=== PATIENT | male | born 1950 | race Caucasian/White ===

== ENCOUNTER 2016-08-06 17:14 | Emergency (ER) | payer MEDICARE, MEDICAID ==
[~2016-08-06] VITALS: Ht 177.8 cm; Wt 93.0 kg
--- OUTSIDE RECORDS SUMMARY | 2016-08-06 17:22 | XMS REPORT ---
Author Author [facility] Organization [facility] Address [address] [place], [place] [id number] Phone [phone] Care Team Providers Care Quality Internship Name Role Phone MARY GIORDANO, PRAKASH PP [phone] Summary purpose CCDA Sent to [facility] Chief Complaint and Reason for Visit No authorized Reason for Visit (Admitting Diagnosis) is available for this visit. Problem list No authorized problems tracked for continuity of care are available for this visit. Encounters No authorized problems tracked for encounter diagnoses are available for this visit. Medications Home Medications Medication Directions Started Status Source Zofran ODT 4 mg disintegrating tablet 1 tablet oral As Needed Every 6 Hours for NAUSIA Current Medication bottle label traMADol 50 mg tablet 1 tablet oral 2 times per day for LEG PAIN Current Family recall from memory levETIRAcetam 500 mg tablet 2 tablet oral Every morning Current Family recall from memory levETIRAcetam 500 mg tablet 3 tablet oral As Needed At Bedtime Current Patient medication list bisoprolol 5 mg-hydrochlorothiazide 6.25 mg tablet 1 tablet oral -Daily Current Family recall from memory omeprazole 40 mg capsule,delayed release 1 tablet oral Every morning Current Family recall from memory Allergies, adverse reactions, alerts Allergen Category Ingredient Status Reaction Severity Onset No Allergy Information Available Drug No Allergy Information Available Inactive Immunizations No immunizations recorded for this patient visit Relevant diagnostic tests and/or laboratory data RESULTS CBC [id number] Result Normal Range Units White Blood Count H 12.74 4.80-10.80 x 103/uL Red Blood Cells 4.78 4.70-6.10 x 106/uL Hemoglobin 15.0 14.0-18.0 g/dl Hematocrit L 41.9 42.0-52.0 % Mean Bry Volume 87.7 80.0-100.0 fL Mean Bry Hemoglobin H 31.4 27.0-31.0 pg Mean Bry Hemoglobin Conc 35.8 32.0-36.0 g/dl Platelet Count 285 130-450 x 103/uL Mean Platelet Volume 9.4 FL Neutrophil % 79.9 38.0-80.0 % Lymphocyte% L 9.6 21-51 % Monocyte % 9.9 2-14 % Eosinophil % 0.3 0.0-20.0 % Basophil % 0.3 0.0-2.5 % Chemistry Group [id number] Result Normal Range Units Glucose H 157 75-110 mg/dl Creatinine 1.1 0.8-1.5 mg/dl Urea Nitrogen (BUN) 12 9-20 mg/dl Bun/Creatinine Ratio 10.8 Ratio Sodium 137 137-145 mmol/L Potassium L 3.1 3.6-5.0 mmol/L Chloride L 93 98-107 mmol/L CO2 H 31 22-30 mmol/L Anion GAP 14 mmol Protein Total H 8.4 6.3-8.2 g/dl Albumin 4.1 3.5-5.0 g/dl Globulin 4.3 mg/dl A/G Ratio 1.0 Ratio Bilirubin Total .7 0.2-1.3 mg/dl Alkaline Phosphatase H 160 38-126 U/L AST H 75 17-59 U/L ALT H 224 21-72 U/L Calcium 9.1 8.4-10.2 mg/dl Osmolality Calculation 268 mOsm/kg History of procedures No procedures recorded for this patient visit. Functional status No functional or cognitive status observations are available for this visit. Vital signs No authorized vital signs are available for this visit. Social history No Social History or smoking status observations were recorded for this visit. ( Unknown if ever smoked.) Treatment Plan No treatment plan text is available for this visit. Hospital discharge instructions No discharge instruction text is available for this visit.
[2016-08-06 17:29] LABS: BASOPHILS # (AUTO) 0.1 10^3/uL (0.0-0.1); BASOPHILS % (AUTO) 1 % (0-10); EOSINOPHILS # (AUTO) 0.2 10^3/uL (0.0-0.3); EOSINOPHILS % (AUTO) 3 % (0-10); LYMPHOCYTES # (AUTO) 2.7 X 10^3 (1.0-4.0); LYMPHOCYTES % (AUTO) 32 % (12-44); MEAN CORPUSCULAR HEMOGLOBIN 30 PG (25-34); MEAN CORPUSCULAR HGB CONC 34 G/DL (32-36); MEAN CORPUSCULAR VOLUME 90 FL (80-99); MONOCYTES # (AUTO) 0.9 X 10^3 (0.0-1.0); MONOCYTES % (AUTO) 11 % (0-12); NEUTROPHILS # (AUTO) 4.5 X 10^3 (1.8-7.8); NEUTROPHILS % (AUTO) 54 % (42-75); PLATELET COUNT 340 10^3/uL (130-400); RED BLOOD COUNT 5.11 10^6/uL (4.35-5.85); RED CELL DISTRIBUTION WIDTH 13.5 % (10.0-14.5); WHITE BLOOD COUNT 8.4 10^3/uL (4.3-11.0)
--- NOTE | 2016-08-06 17:37 | ED Cardiac General ---
History of Present Illness General Chief Complaint: Cardiac/General Problems Stated Complaint: HTN Source: patient Exam Limitations: no limitations (ALEJANDRA WOODY MD) History of Present Illness Time seen by provider: 17:17 Initial Comments Here from [facility] with report of hypertension, sweating, not feeling well and leg pain. Patient has chronic leg pain and that is not really different than previous. EMS noted that he was hypertensive. Patient denies cough, chest pain, nausea, vomiting or diarrhea. States he is eating and drinking okay. States that pain in his legs is related to arthritis. Timing/Duration: 1 hour Severity: moderate NTG SL COUNTER TACKER: No ASA po COUNTER TACKER: No Associated Systoms: No Chest Pain, No Cough, No Fever/Chills, Nausea/ VomitingNo Shortness of Air (ALEJANDRA WOODY MD) Allergies and Home Medications Allergies Coded Allergies: No Known Drug Allergies (Unverified , 08/06/16) Review of Systems Constitutional: see HPINo chills, No fever, weakness EENTM: No Symptoms ReportedNo Nose Pain, No Throat Pain Respiratory: Denies Cough, Denies SOA With Exertion Cardiovascular: Denies Chest Pain, Denies Lightheadedness Gastrointestinal: No Symptoms ReportedDenies Nausea, Denies Vomiting Genitourinary: No Symptoms Reported Musculoskeletal: joint pain muscle pain Skin: no symptoms reported Psychiatric/Neurological: No Symptoms Reported Endocrine: No Symptoms Reported (ALEJANDRA WOODY MD) All Other Systems Reviewed Negative Unless Noted: Yes (ALEJANDRA WOODY MD) Past Uypesrh-Znwabw-Cquhbl Hx Patient Social History Alcohol Use: Denies Use Recreational Drug Use: No Smoking Status: Unknown if Ever Smoked (ALEJANDRA WOODY MD) Surgeries HX Surgeries: Yes Surgeries: Gallbladder (ALEJANDRA WOODY MD) Respiratory Hx Respiratory Disorders: No (ALEJANDRA WOODY MD) Cardiovascular Hx Cardiac Disorders: Yes Cardiac Disorders: Hypertension (ALEJANDRA WOODY MD) Neurological Hx Neurological Disorders: Yes Neurological Disorders: Seizure Disorder (ALEJANDRA WOODY MD) Genitourinary Hx Genitourinary Disorders: No (ALEJANDRA WOODY MD) Gastrointestinal Hx Gastrointestinal Disorders: Yes Gastrointestinal Disorders: Gastroesophageal Reflux (ALEJANDRA WOODY MD) Musculoskeletal Hx Musculoskeletal Disorders: Yes Musculoskeletal Disorders: Arthritis (ALEJANDRA WOODY MD) Endocrine Hx Endocrine Disorders: No (ALEJANDRA WOODY MD) HEENT HX ENT Disorders: No (ALEJANDRA WOODY MD) Cancer Hx Cancer: No (ALEJANDRA WOODY MD) Psychosocial Hx Psychiatric Problems: Yes Behavioral Health Disorders: Anxiety, Personality Disorder (ALEJANDRA WOODY MD) Reviewed Nursing Assessment Reviewed/Agree w Nursing PMH: Yes (ALEJANDRA WOODY MD) Family Medical History Significant Family History: No Pertinent Family Hx (ALEJANDRA WOODY MD) Physical Exam Vital Signs Vital Sign - Last 12Hours 08/06/16 17:15 Temp 99.2 Pulse 88 Resp 16 B/P 193/111 Pulse Ox 95 O2 Delivery Room Air (OLU WHITTINGTON APRN) Vital Signs Capillary Refill : (ALEJANDRA WOODY MD) General Appearance: No Apparent Distress WD/WN HEENT: PERRL/EOMI Pharynx Normal Neck: Non Tender Supple Respiratory: Lungs Clear Normal Breath Sounds Cardiovascular: Regular Rate, Rhythm No Murmur Gastrointestinal: Non Tender Soft Extremity: No Pedal EdemaNo Swelling, Other (tender throughout legs bilaterally) Neurologic/Psychiatric: Alert Oriented x3 No Motor/Sensory Deficits Skin: Normal Color Warm/Dry (ALEJANDRA WOODY MD) Progress/Results/Core Measures Results/Orders Lab Results Laboratory Tests Test 08/06/16 17:20 08/06/16 18:37 08/06/16 19:00 Range/Units Basophils # (Auto) 0.1 0.0-0.1 10^3/uL Basophils (%) (Auto) 1 0-10 % Eosinophils # (Auto) 0.2 0.0-0.3 10^3/uL Eosinophils (%) (Auto) 3 0-10 % Hematocrit 46 40-54 % Hemoglobin 15.5 13.3-17.7 G/DL Lymphocytes # (Auto) 2.7 1.0-4.0 X 10^3 Lymphocytes (%) (Auto) 32 12-44 % Mean Corpuscular Hemoglobin 30 25-34 PG Mean Corpuscular Hemoglobin Concent 34 32-36 G/DL Mean Corpuscular Volume 90 80-99 FL Mean Platelet Volume 9.0 7.4-10.4 FL Monocytes # (Auto) 0.9 0.0-1.0 X 10^3 Monocytes (%) (Auto) 11 0-12 % Neutrophils # (Auto) 4.5 1.8-7.8 X 10^3 Neutrophils (%) (Auto) 54 42-75 % Platelet Count 340 130-400 10^3/uL Red Blood Count 5.11 4.35-5.85 10^6/uL Red Cell Distribution Width 13.5 10.0-14.5 % White Blood Count 8.4 4.3-11.0 10^3/uL Urine Bacteria NONE /HPF Urine Bilirubin NEGATIVE NEGATIVE Urine Casts NONE /LPF Urine Clarity CLEAR Urine Color YELLOW Urine Crystals NONE /LPF Urine Culture Indicated NO Urine Glucose (UA) NEGATIVE NEGATIVE Urine Ketones NEGATIVE NEGATIVE Urine Leukocyte Esterase NEGATIVE NEGATIVE Urine Mucus NEGATIVE /LPF Urine Nitrite NEGATIVE NEGATIVE Urine Protein NEGATIVE NEGATIVE Urine RBC NONE /HPF Urine RBC (Auto) NEGATIVE NEGATIVE Urine Specific Sheldon 1.005 L 1.016-1.022 Urine Squamous Epithelial Cells 0-2 /HPF Urine Urobilinogen NORMAL NORMAL MG/DL Urine WBC NONE /HPF Urine pH 7 5-9 Alanine Aminotransferase (ALT/SGPT) 30 0-55 U/L Albumin 4.1 3.2-4.5 G/DL Alkaline Phosphatase 81 40-136 U/L Anion Gap 12 5-14 MMOL/L Aspartate Amino Transf (AST/SGOT) 21 5-34 U/L BUN/Creatinine Ratio 14 Blood Urea Nitrogen 16 7-18 MG/DL Calcium Level 9.2 8.5-10.1 MG/DL Carbon Dioxide Level 25 21-32 MMOL/L Chloride Level 100 98-107 MMOL/L Creatinine 1.15 0.60-1.30 MG/DL Estimat Glomerular Filtration Rate > 60 Glucose Level 98 70-105 MG/DL Lipase 15 8-78 U/L Magnesium Level 2.3 1.8-2.4 MG/DL Potassium Level 4.2 3.6-5.0 MMOL/L Sodium Level 137 135-145 MMOL/L Total Bilirubin 0.3 0.1-1.0 MG/DL Total Protein 7.8 6.4-8.2 G/DL Troponin I < 0.30 <0.30 NG/ML (OLU WHITTINGTON APRN) My Orders Orders-OLU WHITTINGTON APRN Cbc With Automated Diff (08/06/16 17:22) Comprehensive Metabolic Panel (08/06/16 17:22) Lipase (08/06/16 17:22) Troponin I (08/06/16 17:22) Ua Culture If Indicated (08/06/16 17:22) Chest 1 View, Ap/Pa Only (08/06/16 17:22) Ekg Tracing (08/06/16 17:22) Continuous Ekg Monitoring (08/06/16 17:22) Magnesium (08/06/16 17:22) (OLU WHITTINGTON APRN) My Orders Orders-ALEJANDRA WOODY MD Aspirin Chewable Tablet (Baby Aspirin Ch (08/06/16 17:40) (ALEJANDRA WOODY MD) Medications Given in ED Current Medications Medications Dose Ordered Sig/Ann Route Start Time Stop Time Status Last Admin Dose Admin Alprazolam 0.5 mg ONCE ONCE PO 08/06/16 18:30 08/06/16 18:31 DC 08/06/16 18:36 0.5 MG Clonidine HCl 0.1 mg ONCE ONCE PO 08/06/16 18:30 08/06/16 18:31 DC 08/06/16 18:36 0.1 MG (OLU WHITTINGTON APRN) Vital Signs/I&O Vital Sign - Last 12Hours 08/06/16 17:15 Temp 99.2 Pulse 88 Resp 16 B/P 193/111 Pulse Ox 95 O2 Delivery Room Air (OLU WHITTINGTON APRN) Vital Signs/I&O Vital Sign - Last 12Hours 08/06/16 17:15 Temp 99.2 Pulse 88 Resp 16 B/P 193/111 Pulse Ox 95 O2 Delivery Room Air (ALEJANDRA WOODY MD) Progress Note : Progress Note Seen and evaluated. IV by EMS, labs, EKG, chest x-ray ordered. Monitor patient. (ALEJANDRA WOODY MD) ECG Initial ECG Impression Date: Aug 06, 2016 Initial ECG Impression Time: 17:31 Initial ECG Rate: 85 Initial ECG Rhythm: Normal Sinus Initial ECG Intervals: Normal Comment Sinus rhythm with right bundle branch block. Normal axis. No evidence of ST elevation [place]. No previous available for comparison. Interpreted by me. (ALEJANDRA WOODY MD) Diagnostic Imaging Diagonstic Imaging: Xray Plain Films/CT/US/NM/MRI: chest Comments VIA [place], [place] NAME: WAQAR SHARMA [facility] REC#: [id number] PT STATUS: REG ER : 1950 PHYSICIAN: OLU WHITTINGTON APRN ADMIT DATE: 08/06/16/ER Draft Date of Exam:08/06/16 CHEST 1 VIEW, AP/PA ONLY INDICATION: 66-year-old male presents with high blood pressure and shortness of breath. COMPARISON: None. FINDINGS: Single view of the chest shows the cardiac contour to be upper limits of normal. There is slight prominent central vascularity accentuated by the portable technique. No definite consolidations are seen. Background chronic parenchymal changes are present. There is no effusion or pneumothorax. Soft tissues and bony thorax are normal. IMPRESSION: There is slight prominence in the central lung markings accentuated by the portable technique. An element of mild central venous congestion may be present but no consolidations. Dictated on workstation # [id number] Dict: 08/06/16 1749 Trans: 08/06/16 1800 [facility] [id number] Interpreted by: PAO LOBATO MD Electronically signed by: Reviewed: Reviewed by Me (ALEJANDRA WOODY MD) Departure Communication Progress Notes 1927-patient is standing in his doorway talking on his cell phone states that he feels well like to go home back to the correction and eat. 1947-blood pressure still high at 170s over 105. Patient however is smiling and appears to feel well in standing in the doorway saying wants to go get back in his own bed. We will do one additional dose of clonidine before he is discharged. (OLU WHITTINGTON APRN) Impression Impression: Primary Impression: Hypertension Qualified Code: I15.9 - Secondary hypertension, unspecified Disposition: SNF Condition: Stable Departure-Patient Inst. Decision time for Depature: 19:29 (OLU WHITTINGTON APRN) Referrals: UNKNOWN (PCP/Family) Primary Care Physician Patient Instructions: High Blood Pressure (DC) Add. Discharge Instructions: 1. Continue your current blood pressure medications 2. Follow-up with your regular doctor later this week or next week to recheck your blood pressure and adjust medications accordingly. All discharge instructions reviewed with patient and/or family. Voiced understanding. ALEJANDRA WOODY MD Aug 06, 2016 17:37 OLU WHITTINGTON APRN Aug 06, 2016 19:29
[2016-08-06] MEDS ORDERED: ASPIRIN 81 MG CHEW (CHILDREN'S ASA) PO STA (17:40)
--- NOTE | 2016-08-06 18:00 | Diagnostic Imaging Report ---
INDICATION: 66-year-old male presents with high blood pressure and shortness of breath. COMPARISON: None. FINDINGS: Single view of the chest shows the cardiac contour to be upper limits of normal. There is slight prominent central vascularity accentuated by the portable technique. No definite consolidations are seen. Background chronic parenchymal changes are present. There is no effusion or pneumothorax. Soft tissues and bony thorax are normal. IMPRESSION: There is slight prominence in the central lung markings accentuated by the portable technique. An element of mild central venous congestion may be present but no consolidations. Dictated by: Dictated on workstation # [id number]
[2016-08-06] MEDS ORDERED: ALPRAZolam 0.25 MG (XANAX) TAB PO ONE (18:30)
[2016-08-06] MEDS ORDERED: cloNIDine 0.1 MG (CATAPRES) TAB PO ONE ×2 (18:30→20:00)
[2016-08-06 18:46] LABS: BILIRUBIN,URINE NEGATIVE (NEGATIVE); KETONES,URINE NEGATIVE (NEGATIVE); LEUKOCYTE ESTERASE ,URINE NEGATIVE (NEGATIVE); NITRITE,URINE NEGATIVE (NEGATIVE); PH,URINE 7 (5-9); PROTEIN,URINE NEGATIVE (NEGATIVE); UROBILINOGEN,URINE NORMAL (NORMAL)
[2016-08-06 18:57] LABS: SQUAMOUS EPITHELIAL CELL,UR 0-2 /HPF
[2016-08-06 19:27] LABS: ALANINE AMINOTRANSFERASE 30 U/L (0-55); ALBUMIN 4.1 G/DL (3.2-4.5); ANION GAP 12 MMOL/L (5-14); ASPARTATE AMINO TRANSFERASE 21 U/L (5-34); BILIRUBIN,TOTAL 0.3 MG/DL (0.1-1.0); BLOOD UREA NITROGEN 16 MG/DL (7-18); BUN/CREATININE RATIO 14; CALCIUM 9.2 MG/DL (8.5-10.1); CARBON DIOXIDE 25 MMOL/L (21-32); CHLORIDE 100 MMOL/L (98-107); CREATININE SERUM 1.15 MG/DL (0.60-1.30); GFR ESTIMATED > 60; GLUCOSE 98 MG/DL (70-105); LIPASE 15 U/L (8-78); MAGNESIUM 2.3 MG/DL (1.8-2.4); POTASSIUM 4.2 MMOL/L (3.6-5.0); SODIUM 137 MMOL/L (135-145); TOTAL PROTEIN 7.8 G/DL (6.4-8.2)
[2016-08-06 19:32] LABS: TROPONIN I < 0.30 NG/ML (<0.30)
[2016-08-06 19:50] VITALS: BP 199/117
[2016-08-07] MEDS ORDERED: ALPRAZolam 0.25 MG (XANAX) TAB PO ONE (17:30)
== END 2016-08-06 19:50 ==
LOC: ER 17:19
DX: I10 Essential (primary) hypertension (principal); I45.10 Unspecified right bundle-branch block
CPT/HCPCS: 36415; 71010; 80053; 81000; 83690; 83735; 84484; 85025; 93005